=== PATIENT | female | born 1995 | race African-American/Black ===

== ENCOUNTER 2018-04-29 00:54 | Emergency (ER) | payer OTHER ==
[~2018-04-29] VITALS: Ht 160 cm; Wt 52.3 kg
[2018-04-29 01:19] LABS: HEMATOCRIT 32.8 % (36.0-46.0); MCH 27.4 PG (29.0-34.0); MCHC 33.5 G/DL (30.0-36.0); MCV 81.6 FL (83-99); PLATELET COUNT 256 K/uL (156-360); RBC DIS.WIDTH-CV 13.5 % (11.8-14.6); RBC DIS.WIDTH-SD 40.1 % (39-53); RED BLOOD COUNT 4.02 M/uL (3.80-5.20); WHITE BLOOD COUNT 7.3 K/uL (4.1-10.2)
[2018-04-29 01:28] LABS: CHLORIDE 106 mEq/L (99-109); D-DIMER ELISA < 150.00 ng/mLDDU (<230); POTASSIUM 3.1 mEq/L (3.7-5.4); SODIUM 140 mEq/L (136-147)
[2018-04-29 01:30] LABS: GLUCOSE 142 mg/dL (70-99)
[2018-04-29 01:34] LABS: CREATININE 0.8 mg/dL (0.6-1.3)
[2018-04-29 01:35] LABS: GFR ESTIMATE (CALCULATED) > 59 mL/min/; UREA NITROGEN (BUN) 15 mg/dL (9-23)
[2018-04-29 01:41] LABS: TROP-I INTERPRETATION NEGATIVE; TROPONIN-I 0.04 ng/mL (0.0-0.30)
[2018-04-29 02:42] VITALS: BP 131/80
== END 2018-04-29 02:43 | disposition home or self-care (01) ==
LOC: EME 00:54
PROVIDERS: Emergency Medicine
DX: R07.9 Chest pain, unspecified (principal); F41.9 Anxiety disorder, unspecified; J45.909 Unspecified asthma, uncomplicated
CPT/HCPCS: 71045; 80048; 84484; 85027; 85379; 99281; 99284

== ENCOUNTER 2018-05-24 21:38 | Emergency (ER) | payer OTHER ==
[~2018-05-24] VITALS: Ht 160 cm; Wt 49.0 kg
[2018-05-24 22:40] LABS: HEMATOCRIT 35.9 % (36.0-46.0); MCH 27.8 PG (29.0-34.0); MCHC 33.4 G/DL (30.0-36.0); MCV 83.3 FL (83-99); PLATELET COUNT 263 K/uL (156-360); RBC DIS.WIDTH-CV 13.9 % (11.8-14.6); RBC DIS.WIDTH-SD 42.5 % (39-53); RED BLOOD COUNT 4.31 M/uL (3.80-5.20)
[2018-05-24 22:47] LABS: ALBUMIN 4.9 g/dL (3.2-4.8); CHLORIDE 105 mEq/L (99-109); POTASSIUM 3.8 mEq/L (3.7-5.4); SODIUM 140 mEq/L (136-147)
[2018-05-24 22:49] LABS: GLUCOSE 94 mg/dL (70-99)
[2018-05-24 22:50] LABS: TOTAL PROTEIN 8.6 g/dL (6.4-8.3)
[2018-05-24 22:51] LABS: TOTAL BILIRUBIN 0.4 mg/dL (0.0-1.0)
[2018-05-24 22:52] LABS: SERUM ETHYL ALCOHOL < 10 mg/dL
[2018-05-24 22:53] LABS: ALKALINE PHOSPHATASE 89 IU/L (3-129); CREATININE 0.8 mg/dL (0.6-1.3); GFR ESTIMATE (CALCULATED) > 59 mL/min/
[2018-05-24 22:54] LABS: UREA NITROGEN (BUN) 11 mg/dL (9-23)
[2018-05-24 22:55] LABS: AST (GOT) 22 IU/L (2-34)
[2018-05-24 22:56] LABS: ALT (GPT) 29 IU/L (3-49)
[2018-05-24 23:02] LABS: QUANTITATIVE HCG < 4.0 MIU/ML
[2018-05-24 23:48] LABS: AMPHETAMINE NEGATIVE (500 ng/mL); BARBITURATES NEGATIVE (200 ng/mL); BENZODIAZEPINES NEGATIVE (150 ng/mL); BUPRENORPHINE NEGATIVE (10 ng/mL); COCAINE NEGATIVE (150 ng/mL); METHADONE NEGATIVE (200 ng/mL); METHAMPHETAMINE NEGATIVE (500 ng/mL); OPIATES (MORPHINE) NEGATIVE (100 ng/mL); OXYCODONE NEGATIVE (100 ng/mL); PHENCYCLIDINE NEGATIVE (25 ng/mL); PROPOXYPHENE NEGATIVE (300 ng/mL); THC CANNABINOIDS PRESUMPTIVE POSITIVE (50 ng/mL); TRICYCLIC ANTIDEPRESSANTS NEGATIVE (300 ng/mL)
[2018-05-25 01:04] VITALS: BP 131/61
[2018-05-25 07:57] LABS: THYROTROPIN (TSH) 2.8 MIU/L (0.4-5.5)
== END 2018-05-25 01:04 | disposition home or self-care (01) ==
LOC: EME → EDBD 21:38 → EME 05-25 01:04
PROVIDERS: Emergency Medicine
DX: F41.9 Anxiety disorder, unspecified (principal); J45.909 Unspecified asthma, uncomplicated
CPT/HCPCS: 71046; 80053; 84443; 84702; 84999; 85027; 99281; 99284; G0480